=== PATIENT | male | born 1935 | race Caucasian/White ===

== ENCOUNTER → 2017-11-12 | Outpatient (CLI) | payer OTHER, MEDICARE | END | disposition home or self-care (01) | LOC: NUC 09:50 | DX: M17.0 Bilateral primary osteoarthritis of knee (principal); M19.072 Primary osteoarthritis, left ankle and foot; M19.071 Primary osteoarthritis, right ankle and foot | CPT/HCPCS: 78306; A9503 ==

== ENCOUNTER 2018-03-06 16:24 | Emergency (ER) | payer OTHER, MEDICARE ==
[~2018-03-06] VITALS: Ht 180.3 cm; Wt 98.6 kg
[~2018-03-06 16:24] MED LIST: AMLODIPINE BESYL5 MG PO; ATORVASTATIN CA20 MG PO; COMPAZINE10 MG PO; COUMADIN5 MG PO; FLOMAX0.4 MG PO; SPIRIVA1 INHALATI IH; SYMBICORT60 INHALAT IH; TYLENOL325 M2 PO; ZOFRAN8 MG PO
[2018-03-06 17:51] LABS: BASOPHIL (%) 0.2 % (0-1); EOSINOPHIL (%) 0.9 % (0-5); HEMATOCRIT 28.8 % (38.0-50.0); HEMOGLOBIN 10.1 G/DL (12.5-16.6); IMMATURE GRANULOCYTE (%) 0.5 % (0.0-0.7); LYMPHOCYTE (%) 22.9 % (15-42); MCH 32.6 PG (29.0-34.0); MCHC 35.1 G/DL (30.0-36.0); MCV 92.9 FL (86-99); MONOCYTE (%) 10.7 % (3-12); MONOCYTE COUNT 0.5 K/uL (0-0.8); NEUTROPHIL (%) 64.8 % (45-76); NEUTROPHIL COUNT 2.8 K/uL (1.8-6.4); PLATELET COUNT 88 K/uL (156-360); RBC DIS.WIDTH-CV 17.8 % (11.8-14.6); RBC DIS.WIDTH-SD 56.8 % (39-53); WHITE BLOOD COUNT 4.3 K/uL (4.1-10.2)
[2018-03-06 17:59] LABS: HEMATOCRIT 28.4 % (38.0-50.0); MCH 32.7 PG (29.0-34.0); MCHC 35.2 G/DL (30.0-36.0); MCV 92.8 FL (86-99); PLATELET COUNT 90 K/uL (156-360); RBC DIS.WIDTH-CV 17.5 % (11.8-14.6); RBC DIS.WIDTH-SD 56.2 % (39-53); RED BLOOD COUNT 3.06 M/uL (4.00-5.50); WHITE BLOOD COUNT 4.3 K/uL (4.1-10.2)
[2018-03-06 17:59] LABS: CHLORIDE 108 mEq/L (99-109); POTASSIUM 4.2 mEq/L (3.7-5.4); SODIUM 140 mEq/L (136-147)
[2018-03-06 18:02] LABS: GLUCOSE 89 mg/dL (70-99); TOTAL PROTEIN 6.7 g/dL (6.4-8.3)
[2018-03-06 18:04] LABS: TOTAL BILIRUBIN 0.4 mg/dL (0.0-1.0)
[2018-03-06 18:05] LABS: ALKALINE PHOSPHATASE 59 IU/L (3-129); CREATININE 1.3 mg/dL (0.6-1.3); GFR ESTIMATE (CALCULATED) 56 mL/min/ (58.99-99999)
[2018-03-06 18:06] LABS: UREA NITROGEN (BUN) 26 mg/dL (9-23)
[2018-03-06 18:07] LABS: AST (GOT) 25 IU/L (2-34)
[2018-03-06 18:08] LABS: ALT (GPT) 16 IU/L (3-49); INTER. NORMALIZED RATIO 3.6
[2018-03-06 18:14] LABS: TROP-I INTERPRETATION NEGATIVE; TROPONIN-I < 0.01 ng/mL (0.0-0.30)
[2018-03-06 18:28] LABS: APPEARANCE SL.HAZY ((CLEAR)); BILIRUBIN NEGATIVE; BLOOD LARGE; COLOR YELLOW ((YELLOW)); GLUCOSE (STRIP) NEGATIVE; KETONES NEGATIVE; LEUKOCYTES NEGATIVE; NITRITE NEGATIVE; PROTEIN (STRIP) 30; SPECIFIC GRAVITY 1.027 (1.000-1.030); UROBILINOGEN 0.2 MG/DL (0.2-1.0)
[2018-03-06 18:32] LABS: BACTERIA RARE /HPF; EPITHELIAL CELLS RARE /HPF; MUCUS TRACE /LPF; RED BLOOD CELLS TNTC /HPF (0-5); UCUL ADDED? YES
[2018-03-06] MEDS ORDERED: BACTRIM,SEPT1 TABLET PO (19:32)
[2018-03-06 20:25] VITALS: BP 136/79
== END 2018-03-06 20:27 | disposition home or self-care (01) ==
LOC: EME 16:24
PROVIDERS: Emergency Medicine
DX: N39.0 Urinary tract infection, site not specified (principal); C67.9 Malignant neoplasm of bladder, unspecified; C61 Malignant neoplasm of prostate; Z92.21 Personal history of antineoplastic chemotherapy; Z79.01 Long term (current) use of anticoagulants; Z88.0 Allergy status to penicillin
CPT/HCPCS: 71046; 80053; 81003; 83605; 84484; 85025; 85027; 85610; 87040; 87086; 99281; 99285; J3370

== ENCOUNTER → 2018-04-06 | Outpatient (CLI) | payer MEDICARE ==
[~2018-04-06] MED LIST changes: +BACTRIM,SEPT1 TABLET PO
== END | disposition home or self-care (01) ==
LOC: CDC 11:38
DX: Z01.810 Encounter for preprocedural cardiovascular examination (principal); C67.8 Malignant neoplasm of overlapping sites of bladder; I48.91 Unspecified atrial fibrillation; R94.31 Abnormal electrocardiogram [ECG] [EKG]
CPT/HCPCS: 93000